=== PATIENT | male | born 1985 | race Caucasian/White ===

== ENCOUNTER 2023-07-03 11:22 | Inpatient (IN) | payer MEDICAID, OTHER ==
[2023-07-03] VITALS (10 sets, daily range): BP systolic 107–114; BP diastolic 49–53; PULSE 77–94; RESP 12–18; TEMP 98.2–98.3
[~2023-07-03] VITALS: Ht 175.3 cm; Wt 74.9 kg
[2023-07-03] MEDS ORDERED: OCTREOTIDE 1,000 MCG in SODIUM CHLORIDE 0.9% 100 ML IV ONE (11:45)
[2023-07-03] MEDS ORDERED: PANTOPRAZOLE 80 MG in SODIUM CHLORIDE 0.9% 100 ML IV SCH (11:45)
[2023-07-03 12:05] LABS: BASOPHILS % 0.4 % (0.0-2.0); EOSINOPHILS % 0.1 % (0.0-5.0); LYMPHOCYTES % 13.5 % (20.0-50.0); MEAN CORPUSCULAR HEMOGLOBIN 14.6 pg (28.0-32.0); MEAN CORPUSCULAR HGB CONC 24.3 g/dL (31.0-37.0); MEAN CORPUSCULAR VOLUME 60.3 fL (80.0-94.0); MEAN PLATELET VOLUME 11.3 fl (7.4-10.4); MONOCYTES % 9.8 % (2.0-8.0); NEUTROPHILS % 76.2 % (40.0-76.0); PLATELET 171 x1000/uL (130-400); RED BLOOD CELL COUNT 0.98 mill/uL (4.7-6.1); RED CELL DISTRIBUTION WIDTH 21.7 % (11.6-14.6); WHITE BLOOD COUNT 4.4 x1000/uL (4.5-11.0)
[2023-07-03 12:20] LABS: AMMONIA 99 uMol/L (<32)
[2023-07-03 12:21] LABS: ALANINE AMINOTRANSFERASE 12 IU/L (10-49); ALBUMIN 2.7 g/dL (3.2-4.8); ASPARTATE AMINOTRANSFERASE 16 IU/L (<34); BILIRUBIN TOTAL 1.5 mg/dL (0.1-1.0); CALCIUM 7.3 mg/dL (8.7-10.4); CHLORIDE 108 mEq/L (98-107); CREATININE 0.8 mg/dL (0.6-1.3); ETHANOL BLOOD < 10 mg/dL (<10); GLUCOSE 116 mg/dL (70-105); POTASSIUM 4.4 mEq/L (3.5-5.1); PROTEIN TOTAL 3.7 g/dL (6.0-8.3); SODIUM 139 mEq/L (136-145); UREA NITROGEN BLOOD 19 mg/dL (9-23)
[2023-07-03 12:23] LABS: DIFFERENTIAL COMMENT 1
[2023-07-03 12:24] LABS: CARBON DIOXIDE < 10 mEq/L (21-32); HEMATOCRIT. 5.9 % (42.0-52.0); HEMOGLOBIN. 1.4 g/dL (14.0-18.0)
[2023-07-03 12:25] LABS: ADD RBC MORPHOLOGY YES; PARTIAL THROMBOPLASTIN TIME 22.9 sec (23.4-31.0); PROTHROMBIN TIME 21.5 sec (9.6-11.0)
[2023-07-03] MEDS: PANTOPRAZOLE SODIUM 40 MG/VIAL IV ONE (12:30)
[2023-07-03 12:35] LABS: LACTIC ACID 17.9 mmol/L (0.4-2.0)
[2023-07-03] MEDS: PANTOPRAZOLE 80 MG in SODIUM CHLORIDE 0.9% 100 ML IV SCH (12:37)
[2023-07-03] MEDS: OCTREOTIDE 1,000 MCG in SODIUM CHLORIDE 0.9% 100 ML IV ONE (12:37)
[2023-07-03] MEDS: SODIUM BICARBONATE 8.4% 1 MEQ/ML 50ML SYR IV NR (15:14)
[2023-07-03] MEDS ORDERED: ONDANSETRON HCL 4MG/2ML INJ IV PRN (15:45)
[2023-07-03] MEDS ORDERED: DIPHENHYDRAMINE 50MG/ML VIAL IV PRN (15:45)
[2023-07-03] MEDS ORDERED: IPRATROPIUM/ALBUTEROL 0.5-3(2.5)MG/3ML NEB HHN PRN (15:45)
[2023-07-03] MEDS ORDERED: ACETAMINOPHEN 325MG TABLET PO PRN (15:45)
[2023-07-03 15:57] LABS: ANISOCYTOSIS 3+; MICROCYTOSIS 4+; OVALOCYTES 1+; PLATELET ESTIMATE NORMAL
[2023-07-03 15:58] LABS: HYPOCHROMASIA 2+
[2023-07-03] MEDS ORDERED: OCTREOTIDE 1,000 MCG in SODIUM CHLORIDE 0.9% 98 ML IV SCH (16:30)
[2023-07-03] MEDS: SODIUM BICARBONATE 150 MEQ in DEXTROSE 5% WATER 850 ML IV SCH (18:43)
[2023-07-03 19:07] LABS: HEMATOCRIT 12.8 % (42.0-52.0); HEMOGLOBIN 3.8 g/dL (14.0-18.0)
[2023-07-03 19:21] LABS: IRON 252 ug/dL (65-175); TOTAL IRON BINDING CAPACITY 226 ug/dl (250-425)
[2023-07-03 19:26] LABS: FOLIC ACID (FOLATE) SERUM 12.61 ng/mL (>5.38); VITAMIN B12 SERUM 568 pg/mL (211-911)
[2023-07-03] MEDS: LACTULOSE 20G/30ML UDC PO SCH (22:32)
[2023-07-04] VITALS (92 sets, daily range): BP systolic 103–173; BP diastolic 32–113; PULSE 61–91; RESP 10–24; TEMP 97.7–99.1
[2023-07-04 01:22] LABS: HEMOGLOBIN 4.6 g/dL (14.0-18.0)
[2023-07-04 01:23] LABS: HEMATOCRIT 13.5 % (42.0-52.0)
[2023-07-04] MEDS: OCTREOTIDE 1,000 MCG in SODIUM CHLORIDE 0.9% 98 ML IV SCH (06:06)
[2023-07-04 06:07] LABS: BASOPHILS % 0.1 % (0.0-2.0); EOSINOPHILS % 0.5 % (0.0-5.0); LYMPHOCYTES % 18.5 % (20.0-50.0); MEAN CORPUSCULAR HEMOGLOBIN 27.2 pg (28.0-32.0); MEAN CORPUSCULAR HGB CONC 34.4 g/dL (31.0-37.0); MEAN CORPUSCULAR VOLUME 78.9 fL (80.0-94.0); MONOCYTES % 12.6 % (2.0-8.0); NEUTROPHILS % 68.3 % (40.0-76.0); RED BLOOD CELL COUNT 2.08 mill/uL (4.7-6.1); RED CELL DISTRIBUTION WIDTH 30.2 % (11.6-14.6)
[2023-07-04 06:12] LABS: AMMONIA 52 uMol/L (<32)
[2023-07-04 06:24] LABS: ALANINE AMINOTRANSFERASE 32 IU/L (10-49); ALBUMIN 2.8 g/dL (3.2-4.8); ASPARTATE AMINOTRANSFERASE 44 IU/L (<34); BILIRUBIN DIRECT 1.5 mg/dL (<=3.0); BILIRUBIN TOTAL 5.4 mg/dL (0.1-1.0); CALCIUM 7.3 mg/dL (8.7-10.4); CARBON DIOXIDE 25 mEq/L (21-32); CHLORIDE 109 mEq/L (98-107); CREATININE 0.8 mg/dL (0.6-1.3); GLUCOSE 124 mg/dL (70-105); POTASSIUM 3.7 mEq/L (3.5-5.1); SODIUM 141 mEq/L (136-145); UREA NITROGEN BLOOD 24 mg/dL (9-23)
[2023-07-04 06:26] LABS: INR 1.4; PROTHROMBIN TIME 15.3 sec (9.6-11.0)
[2023-07-04 06:35] LABS: HEMATOCRIT. 16.4 % (42.0-52.0)
[2023-07-04 06:36] LABS: DIFFERENTIAL COMMENT 1
[2023-07-04 06:37] LABS: HEMOGLOBIN. 5.7 g/dL (14.0-18.0)
[2023-07-04] MEDS: PANTOPRAZOLE SODIUM 40 MG/VIAL IV SCH (08:59)
[2023-07-04 10:33] LABS: MEAN PLATELET VOLUME 9.2 fl (7.4-10.4); PLATELET 59 x1000/uL (130-400)
[2023-07-04 12:23] LABS: HEMATOCRIT 21.6 % (42.0-52.0)
[2023-07-04 12:26] LABS: HEMOGLOBIN 7.1 g/dL (14.0-18.0)
[2023-07-04] MEDS: FUROSEMIDE 40MG/4ML VIAL IVP SCH (13:37)
[2023-07-04] MEDS: PHYTONADIONE 10MG/ML INJ SUBCUT SCH (13:37)
[2023-07-04] MEDS: CARVEDILOL 3.125 MG TABLET PO SCH (13:37)
[2023-07-04] MEDS: SPIRONOLACTONE 50MG TABLET PO SCH (16:21)
[2023-07-04 16:57] LABS: HEMATOCRIT 24.5 % (42.0-52.0)
[2023-07-04 22:39] LABS: HEMATOCRIT 22.8 % (42.0-52.0); HEMOGLOBIN 7.4 g/dL (14.0-18.0)
[2023-07-05] VITALS (77 sets, daily range): BP systolic 95–137; BP diastolic 61–94; PULSE 50–72; RESP 10–20; TEMP 97.6–98.6
[2023-07-05 07:45] LABS: BASOPHILS % 0.7 % (0.0-2.0); EOSINOPHILS % 1.7 % (0.0-5.0); HEMATOCRIT. 24.3 % (42.0-52.0); HEMOGLOBIN. 8.2 g/dL (14.0-18.0); LYMPHOCYTES % 19.2 % (20.0-50.0); MEAN CORPUSCULAR HEMOGLOBIN 27.4 pg (28.0-32.0); MEAN CORPUSCULAR HGB CONC 33.6 g/dL (31.0-37.0); MEAN CORPUSCULAR VOLUME 81.4 fL (80.0-94.0); MONOCYTES % 9.8 % (2.0-8.0); NEUTROPHILS % 68.6 % (40.0-76.0); RED BLOOD CELL COUNT 2.98 mill/uL (4.7-6.1); RED CELL DISTRIBUTION WIDTH 24.9 % (11.6-14.6); WHITE BLOOD COUNT 3.3 x1000/uL (4.5-11.0)
[2023-07-05] MEDS ORDERED: SODIUM BICARBONATE 4% (2.4MEQ) 5ML VIAL IV ONE (07:48)
[2023-07-05] MEDS ORDERED: LIDOCAINE HCL 1% 10 MG/ML 10ML VIAL ONE (07:48)
[2023-07-05 07:59] LABS: DIFFERENTIAL COMMENT 1
[2023-07-05 08:06] LABS: ALANINE AMINOTRANSFERASE 78 IU/L (10-49); ALBUMIN 3.2 g/dL (3.2-4.8); AMMONIA 36 uMol/L (<32); ASPARTATE AMINOTRANSFERASE 58 IU/L (<34); BILIRUBIN DIRECT 1.2 mg/dL (<=3.0); CALCIUM 7.6 mg/dL (8.7-10.4); CARBON DIOXIDE 24 mEq/L (21-32); CHLORIDE 107 mEq/L (98-107); CREATININE 0.8 mg/dL (0.6-1.3); GLUCOSE 112 mg/dL (70-105); PHOSPHORUS 1.7 mg/dL (2.5-4.9); POTASSIUM 3.5 mEq/L (3.5-5.1); PROTEIN TOTAL 4.8 g/dL (6.0-8.3); SODIUM 137 mEq/L (136-145); UREA NITROGEN BLOOD 18 mg/dL (9-23)
[2023-07-05 08:29] LABS: MEAN PLATELET VOLUME 9.7 fl (7.4-10.4); PLATELET 65 x1000/uL (130-400)
[2023-07-05] MEDS: POTASSIUM CHLORIDE 20MEQ TABLET SR PO SCH (10:27)
[2023-07-05 17:24] LABS: HEMATOCRIT 26.4 % (42.0-52.0); HEMOGLOBIN 8.9 g/dL (14.0-18.0)
[2023-07-06] VITALS (30 sets, daily range): BP systolic 105–126; BP diastolic 50–75; PULSE 50–62; RESP 10–19; TEMP 97.6–98.4
[2023-07-06 05:30] LABS: EOSINOPHILS % 2.7 % (0.0-5.0); HEMATOCRIT. 25.3 % (42.0-52.0); HEMOGLOBIN. 8.5 g/dL (14.0-18.0); LYMPHOCYTES % 20.9 % (20.0-50.0); MEAN CORPUSCULAR HEMOGLOBIN 27.3 pg (28.0-32.0); MEAN CORPUSCULAR HGB CONC 33.5 g/dL (31.0-37.0); MEAN CORPUSCULAR VOLUME 81.3 fL (80.0-94.0); MEAN PLATELET VOLUME 10.2 fl (7.4-10.4); MONOCYTES % 11.9 % (2.0-8.0); NEUTROPHILS % 63.5 % (40.0-76.0); PLATELET 62 x1000/uL (130-400); RED BLOOD CELL COUNT 3.11 mill/uL (4.7-6.1); RED CELL DISTRIBUTION WIDTH 24.7 % (11.6-14.6); WHITE BLOOD COUNT 2.8 x1000/uL (4.5-11.0)
[2023-07-06 05:41] LABS: ALANINE AMINOTRANSFERASE 56 IU/L (10-49); ALBUMIN 3.3 g/dL (3.2-4.8); AMMONIA 20 uMol/L (<32); ASPARTATE AMINOTRANSFERASE 23 IU/L (<34); BILIRUBIN DIRECT 1.6 mg/dL (<=3.0); BILIRUBIN TOTAL 4.7 mg/dL (0.1-1.0); CALCIUM 7.7 mg/dL (8.7-10.4); CARBON DIOXIDE 27 mEq/L (21-32); CHLORIDE 105 mEq/L (98-107); CREATININE 0.8 mg/dL (0.6-1.3); GLUCOSE 95 mg/dL (70-105); PHOSPHORUS 2.3 mg/dL (2.5-4.9); POTASSIUM 3.6 mEq/L (3.5-5.1); PROTEIN TOTAL 4.9 g/dL (6.0-8.3); SODIUM 138 mEq/L (136-145); UREA NITROGEN BLOOD 12 mg/dL (9-23)
[2023-07-06 07:20] LABS: DIFFERENTIAL COMMENT 1
[2023-07-06] MEDS: POTASSIUM PHOSPHATE 20 MMOL in DEXT 5% WATER 243.3333 ML IV SCH (10:35)
[2023-07-06] MEDS ORDERED: PROPOFOL 200MG/20ML VIAL IV ONE (14:16)
[2023-07-06] MEDS ORDERED: MIDAZOLAM HCL 2 MG/2 ML VIAL ONE (14:17)
[2023-07-06] MEDS ORDERED: ONDANSETRON HCL 4MG/2ML INJ ONE (15:18)
[2023-07-06] MEDS ORDERED: DEXAMETHASONE 4MG/ML 1ML VIAL ONE (15:19)
[2023-07-07] VITALS (10 sets, daily range): BP systolic 104–117; BP diastolic 56–71; PULSE 54–62; RESP 11–16; TEMP 97–97.7; O2SAT 99
[2023-07-07 05:57] LABS: BASOPHILS % 0.2 % (0.0-2.0); EOSINOPHILS % 0.1 % (0.0-5.0); HEMATOCRIT. 28.9 % (42.0-52.0); HEMOGLOBIN. 9.3 g/dL (14.0-18.0); LYMPHOCYTES % 18.6 % (20.0-50.0); MEAN CORPUSCULAR HEMOGLOBIN 26.7 pg (28.0-32.0); MEAN CORPUSCULAR HGB CONC 32.3 g/dL (31.0-37.0); MEAN CORPUSCULAR VOLUME 82.6 fL (80.0-94.0); MONOCYTES % 12.7 % (2.0-8.0); NEUTROPHILS % 68.4 % (40.0-76.0); RED BLOOD CELL COUNT 3.49 mill/uL (4.7-6.1); WHITE BLOOD COUNT 2.5 x1000/uL (4.5-11.0)
[2023-07-07 06:05] LABS: AMMONIA < 17 uMol/L (<32)
[2023-07-07 06:06] LABS: ALANINE AMINOTRANSFERASE 40 IU/L (10-49); ALBUMIN 3.4 g/dL (3.2-4.8); ASPARTATE AMINOTRANSFERASE 14 IU/L (<34); BILIRUBIN DIRECT 1.8 mg/dL (<=3.0); BILIRUBIN TOTAL 4.7 mg/dL (0.1-1.0); CALCIUM 7.9 mg/dL (8.7-10.4); CARBON DIOXIDE 27 mEq/L (21-32); CHLORIDE 106 mEq/L (98-107); CREATININE 0.8 mg/dL (0.6-1.3); GLUCOSE 117 mg/dL (70-105); PHOSPHORUS 3.8 mg/dL (2.5-4.9); POTASSIUM 4.2 mEq/L (3.5-5.1); SODIUM 138 mEq/L (136-145); UREA NITROGEN BLOOD 8 mg/dL (9-23)
[2023-07-07 08:10] LABS: DIFFERENTIAL COMMENT 1
[2023-07-07 10:06] LABS: PLATELET 59 x1000/uL (130-400)
[2023-07-07 10:13] LABS: MEAN PLATELET VOLUME 9.5 fl (7.4-10.4)
[2023-07-07] MEDS ORDERED: COR3 PO (11:29)
[2023-07-07] MEDS ORDERED: LACT10SO7 PO (11:29)
[2023-07-07] MEDS ORDERED: PANT40TA51 MT (11:29)
[2023-07-07] MEDS ORDERED: ALD50 PO (11:29)
== END 2023-07-07 15:20 | disposition home or self-care (01) | DRG 280 ==
LOC: ER 11:22 → CVICU 15:14 → EDBEDREQTM 15:23 → EDBEDREQ 15:23 → 5EST 07-06 12:45
PROVIDERS: ADMIT Internal Medicine; ATTEND Internal Medicine
PROC: 30233K1 Transfusion of Nonautologous Frozen Plasma into Peripheral Vein, Percutaneous Approach (ICD-10-PCS; principal; 2023-07-03)
PROC: 30233N1 Transfusion of Nonautologous Red Blood Cells into Peripheral Vein, Percutaneous Approach (ICD-10-PCS; 2023-07-03)
PROC: 0DB78ZX Excision of Stomach, Pylorus, Via Natural or Artificial Opening Endoscopic, Diagnostic (ICD-10-PCS; 2023-07-06)
DX: K70.31 Alcoholic cirrhosis of liver with ascites (principal); R57.8 Other shock; I85.01 Esophageal varices with bleeding; K72.90 Hepatic failure, unspecified without coma; E87.20 Acidosis, unspecified; I42.9 Cardiomyopathy, unspecified; R16.2 Hepatomegaly with splenomegaly, not elsewhere classified; I86.4 Gastric varices; I10 Essential (primary) hypertension; D50.9 Iron deficiency anemia, unspecified; M47.816 Spondylosis without myelopathy or radiculopathy, lumbar region; M48.00 Spinal stenosis, site unspecified; M51.9 Unspecified thoracic, thoracolumbar and lumbosacral intervertebral disc disorder; I51.7 Cardiomegaly; K31.89 Other diseases of stomach and duodenum
CPT/HCPCS: 36415; 71045; 74176; 76705; 80048; 80053; 80076; 80320; 82140; 82248; 82607; 82746; 83540; 83550; 83605; 83735; 83880; 84100; 85014; 85018; 85025; 85044; 85384; 86850; 86900; 86920; 86927; 88305; 88312; 88313; 93970; 99285; C9113; J1100; J1940; J2250; J2354; J2405; J2704; J3430; J3490; J7050; J7060; J7070; P9016; P9017; G0480